=== PATIENT | female | born 1975 | race Caucasian/White ===

== ENCOUNTER 2017-03-11 14:21 | Emergency (ER) | payer MEDICAID, OTHER ==
[2017-03-11 14:43] VITALS: BP 109/70
--- NOTE | 2017-03-11 15:05 | UC ---
Neck Pain HPI - HPI Summary HPI Summary: 41 YEAR OLD FEMALE PRESENTS WITH COMPLAINS SEVERE OCCIPITAL HEADACHE. - History of Current Complaint Chief Complaint: UCHeadache Stated Complaint: headache, aND NECKACHE, AND SHOULDER PAIN Time Seen by Provider: 03/11/17 15:02 Hx Obtained From: Patient Hx Last Menstrual Period: 02/20/17 Onset/Duration: Sudden Onset Pain Scale Used: 0-10 Numeric - 5 Character: Sharp Aggravating Factors: Nothing Alleviating Factors: Nothing Associated Signs & Symptoms: Positive: Negative - Risk Factors Meningitis Risk Factors: Negative - Allergies/Home Medications Allergies/Adverse Reactions: Allergies Allergy/AdvReac Type Severity Reaction Status Date / Time Erythromycin Allergy Mild Nausea Verified 03/11/17 16:05 PMH/Surg Hx/FS Hx/Imm Hx Previously Healthy: Yes - Surgical History Surgical History: None - Family History Known Family History: Positive: None Negative: Cardiac Disease Family History: no known cardiovascular issues in family lineage - Social History Alcohol Use: Occasionally Substance Use Type: None Smoking Status (MU): Never Smoked Tobacco Have You Smoked in the Last Year: No - Immunization History Most Recent Influenza Vaccination: Fall 2014 Most Recent Tetanus Shot: Fall 2014 Most Recent Pneumonia Vaccination: never Review Of Systems Constitutional: Positive: Negative Skin: Positive: Negative Eyes: Positive: Negative ENT: Positive: Negative Respiratory: Positive: Negative Cardiovascular: Positive: Negative Gastrointestinal: Positive: Negative Genitourinary: Positive: Negative Musculoskeletal: Positive: Negative Neurological: Positive: Headache Psychological: Positive: Negative All Other Systems Reviewed And Are Negative: Yes Physical Exam Triage Information Reviewed: Yes Appearance: Ill-Appearing, Pain Distress Vital Signs: Initial Vital Signs Temp 36.6 C 03/11/17 14:40 Pulse 84 03/11/17 14:40 Resp 18 03/11/17 14:40 BP 109/70 03/11/17 14:40 Pulse Ox 100 03/11/17 14:40 Vital Signs Reviewed: Yes Eye Exam: Normal ENT Exam: Normal Dental Exam: Normal Neck exam: Normal Neck: Positive: 1 Respiratory Exam: Normal Cardiovascular Exam: Normal Abdominal Exam: Normal Musculoskeletal Exam: Normal Neurological Exam: Normal Psychological Exam: Normal Skin Exam: Normal Neck Pain Course/Dx - Differential Dx/Diagnosis Provider Diagnoses: INTRACTABLE HEADACHE. Discharge - Discharge Plan Condition: Stable Disposition: HOME Patient Education Materials: General Headache (ED) Referrals: Sopchak,Sarabjit, DO [Primary Care Provider] - Additional Instructions: PATIENT SUGGESTED TO GO TO ER FOR INTRACTABLE HEADACHE.
== END 2017-03-11 15:18 | disposition home or self-care (01) ==
LOC: UCEAST 14:21
DX: R55 Syncope and collapse (principal)
CPT/HCPCS: 99212; G0463

== ENCOUNTER 2017-03-11 16:01 | Emergency (ER) | payer MEDICAID, OTHER ==
[2017-03-11] MEDS ORDERED: Ondansetron INJ* 2 MG/ML VIAL IV ONE (19:59)
[2017-03-11] MEDS ORDERED: diPHENhydraMINE IV* 50 MG/ML 1 ml VIAL (BENADRYL) IV ONE (19:59)
--- NOTE | 2017-03-11 20:26 | RAD ---
HISTORY: Headache COMPARISONS: None TECHNIQUE: Multiple contiguous axial CT scans were obtained of the head without intravenous contrast. FINDINGS: HEMORRHAGE/INFARCT: There is no hemorrhage or acute infarct. MASSES/SHIFT: There is no mass or shift. EXTRA-AXIAL SPACES: There are no extra-axial fluid collections. SULCI AND VENTRICLES: The sulci and ventricles are normal in size and position for the patient's stated age. CEREBRUM: There are no focal parenchymal abnormalities. BRAINSTEM: There are no focal parenchymal abnormalities. CEREBELLUM: There are no focal parenchymal abnormalities. VESSELS: The vessels are grossly normal. PARANASAL SINUSES: The paranasal sinuses are clear. ORBITS: The orbits are unremarkable. BONES AND SOFT TISSUE: No bone or soft tissue abnormalities are noted. OTHER: None IMPRESSION: NO ACUTE INTRACRANIAL PATHOLOGY.
--- NOTE | 2017-03-11 20:39 | RAD ---
HISTORY: Headache, neck pain COMPARISONS: November 22, 2014 TECHNIQUE: Multiple contiguous axial CT scans were obtained of the cervical spine without intravenous contrast, with coronal and sagittal multiplanar reformations. FINDINGS: BRAIN: The visualized brain is unremarkable CENTRAL CANAL: Evaluation of the central canal is limited on CT technique; however, there is no obvious canalicular mass or epidural hemorrhage. ALIGNMENT: There is straightening of the cervical lordosis. VERTEBRAL BODIES: The odontoid process is intact. The atlantoaxial intervals are symmetric. The vertebral bodies are normal in attenuation, without fracture. There is minimal posterior osteophytic ridging at C4 C5 C7. JOINTS: There is no subluxation or dislocation MUSCULATURE: Unremarkable INTERVERTEBRAL DISCS: There is diffuse loss of intervertebral disc height. AXIAL IMAGES: C2-C3: There is no osseous neural foraminal narrowing or central canal stenosis. C3-C4: There is no osseous neural foraminal narrowing or central canal stenosis. C4-C5: There is no osseous neural foraminal narrowing or central canal stenosis. C5-C6: There is no osseous neural foraminal narrowing or central canal stenosis. C6-C7: There is no osseous neural foraminal narrowing or central canal stenosis. C7-T1: There is no osseous neural foraminal narrowing or central canal stenosis. SOFT TISSUES: The visualized soft tissues of the neck are unremarkable. The prevertebral fat stripe is preserved. OTHER: None. IMPRESSION: 1. STRAIGHTENING OF THE CERVICAL LORDOSIS. 2. MILD DEGENERATIVE DISC DISEASE.
[2017-03-11] MEDS: NS 0.9% 1000 ML* 2,000 ML IV ONE ×2 (20:51→22:01)
[2017-03-11 21:15] LABS: Hematocrit 35 % (35-47); Hemoglobin 11.6 g/dl (12.0-16.0); Mean Corpuscular HGB Conc 33 g/dl (31-36); Mean Corpuscular Hemoglobin 26 pg (27-31); Mean Corpuscular Volume 79 fL (80-97); Mean Platelet Volume 9 um3 (7.4-10.4); Red Blood Count 4.44 10^6/ul (4.0-5.4); Red Cell Distribution Width 13 % (10.5-15); White Blood Count 7.1 10^3/ul (3.5-10.8)
[2017-03-11 21:35] LABS: ALT 6 U/L (7-52); AST 12 U/L (13-39); Albumin 3.6 g/dL (3.2-5.2); Alkaline Phosphatase 66 U/L (34-104); Anion Gap 5 mmol/L (2-11); BUN/Creatinine Ratio 22.1 (8-20); Blood Urea Nitrogen 17 mg/dL (6-24); C Reactive Protein 17.07 mg/L (< 5.00); CO2 Carbon Dioxide 26 mmol/L (22-32); Calcium 9.1 mg/dL (8.6-10.3); Chloride 105 mmol/L (101-111); EGFR African American 107.3 (>60); EGFR Non-African American 83.5 (>60); Globulin 3.8 g/dL (2-4); Glucose 103 mg/dL (70-100); Potassium 3.7 mmol/L (3.5-5.0); Sodium 136 mmol/L (133-145); Total Protein 7.4 g/dL (6.4-8.9)
[2017-03-11] MEDS ORDERED: Ketorolac INJ* 30 MG/ML 1 ML VIAL IV ONE (21:55)
[2017-03-11] MEDS ORDERED: Morphine INJ* 4 MG/ML 1 ML CARPUJECT IV ONE (22:10)
[2017-03-11 23:18] LABS: Urine Bacteria Absent (Absent)
[2017-03-11 23:22] LABS: Urine Bilirubin 1+ (Negative); Urine Nitrite Negative (Negative)
[2017-03-11 23:23] LABS: Urine Glucose Negative (Negative)
[2017-03-11] MEDS ORDERED: oxyCODONE/Acetamin 5/325 MG* TAB PO ONE (23:58)
[2017-03-11] MEDS ORDERED: Cyclobenzaprine TAB* 10 MG PO ONE (23:58)
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
[2017-03-12 00:25] VITALS: BP 105/71
== END 2017-03-12 00:25 | disposition home or self-care (01) ==
LOC: ED 16:01
DX: M54.2 Cervicalgia (principal); R51 Headache; M50.30 Other cervical disc degeneration, unspecified cervical region; A69.20 Lyme disease, unspecified
CPT/HCPCS: 36415; 70450; 72125; 80053; 81003; 83605; 83735; 84443; 84702; 85025; 85610; 85730; 86140; 96360; 96374; 96375; 99283; A9270-GY; J1200; J1885; J2270; J2405